=== PATIENT | male | born 1965 | race Hispanic/Latino ===

== ENCOUNTER 2018-12-16 18:30 | Emergency (ER) | payer OTHER ==
[2018-12-16] MEDS ORDERED: Ibuprofen 200 MG TAB ONE ×2 (19:52→19:55)
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
== END 2018-12-16 21:48 | disposition home or self-care (01) ==
LOC: ERS 18:30
DX: S52.572A Other intraarticular fracture of lower end of left radius, initial encounter for closed fracture (principal); S62.002A Unspecified fracture of navicular [scaphoid] bone of left wrist, initial encounter for closed fracture; I10 Essential (primary) hypertension; E78.5 Hyperlipidemia, unspecified; Z79.899 Other long term (current) drug therapy; V86.96XA Unspecified occupant of dirt bike or motor/cross bike injured in nontraffic accident, initial encounter
CPT/HCPCS: 29125

== ENCOUNTER 2018-12-22 12:50 | Outpatient (CLI) | payer OTHER ==
[2018-12-22 13:44] LABS: #Basophils 0.1 thou/uL (0.0-0.2); #Eosinphils 0.1 thou/uL (0.0-0.7); #Lymphocytes 1.7 thou/uL (1.20-3.40); #Monocytes 0.4 thou/uL (0.11-0.59); #Neutrophils 3.1 thou/uL (1.40-6.50); %Basophils 1.1 % (0.0-1.0); %Eosinophils 1.3 % (0.0-10.0); %Lymphocytes 31.9 % (21.0-51.0); %Monocytes 6.7 % (0.0-10.0); Hemoglobin 15.5 g/dL (14.0-18.0); Mean Corpuscular HGB CONC 33.7 g/dL (32.0-36.0); Mean Corpuscular Hemoglobin 30.6 pg (27.0-31.0); Mean Corpuscular Volume 90.8 fL (78.0-98.0); Mean Platelet Volume 8.4 fL (7.4-10.4); Platelet Count 242 thou/uL (130-400); RBC Distribution Width 12.3 % (11.5-14.5); Red Blood Cell (RBC) Count 5.06 mill/uL (4.70-6.10); White Blood Cell (WBC) Count 5.2 thou/uL (4.8-10.8)
--- NOTE | 2018-12-22 17:03 | EKG ---
Test Reason : Blood Pressure : / mmHG Vent. Rate : 069 BPM Atrial Rate : 069 BPM P-R Int : 174 ms QRS Dur : 102 ms QT Int : 384 ms P-R-T Axes : 050 -10 047 degrees QTc Int : 411 ms Normal sinus rhythm Septal infarct , age undetermined Abnormal ECG No previous ECGs available Confirmed by DR. Christopher CLIFFORD (3) on 12/22/2018 5:03:18 PM Referred By: SARAH Confirmed By:DR. Christopher CLIFFORD
== END 2018-12-22 12:51 | disposition home or self-care (01) ==
LOC: LABBT 12:50
PROVIDERS: ATTEND Orthopaedic Surgery Hand Surgery
DX: Z01.818 Encounter for other preprocedural examination (principal); S52.502A Unspecified fracture of the lower end of left radius, initial encounter for closed fracture; S62.002A Unspecified fracture of navicular [scaphoid] bone of left wrist, initial encounter for closed fracture
CPT/HCPCS: 85025; 93005; 93010

== ENCOUNTER 2018-12-26 07:54 | Day surgery (SDC) | payer OTHER ==
[2018-12-22 12:56] VITALS: BMI 30.4
[2018-12-26] MEDS ORDERED: Fentanyl 100 MCG/2 ML VIAL ONE (09:56)
[2018-12-26] MEDS ORDERED: Midazolam HCl 2 mg/2 ml Vial ONE ×2 (09:56→11:17)
[2018-12-26] MEDS ORDERED: HYDROmorphone 0.5 MG/0.5 ML SYRINGE ONE ×2 (11:17→12:14)
[2018-12-26] MEDS ORDERED: Bacitracin Zinc Ointment 30 gm TUBE ONE (11:26)
--- NOTE | 2018-12-26 14:28 | RAD ---
INTRAOPERATIVE IMAGING RIGHT WRIST: 12/26/2018 HISTORY: ORIF FINDINGS: Images demonstrate placement of volar radial screw and plate fixation distally. Images also demonstr ate placement of a screw within the scaphoid bone. IMPRESSION: Open reduction and internal fixation, as above. Transcribed Date/Time: 12/26/2018 2:31 PM
[2018-12-26] MEDS ORDERED: Ketorolac Tromethamine 30 MG/ML VIAL ONE (15:11)
[2018-12-26] MEDS ORDERED: Bupivacaine HCl 0.5%/Epinephrine 1:200,000/PF 30 ml Vial ONE (16:14)
[2018-12-26] MEDS ORDERED: Lidocaine 1% PF 5 ML VIAL ONE (16:46)
[2018-12-26] MEDS ORDERED: PROPOFOL 200 MG/20 ML VIAL ONE (16:46)
[2018-12-26] MEDS ORDERED: Ondansetron PF 4 MG/2 ML Vial ONE (16:46)
[2018-12-26] MEDS ORDERED: Dexamethasone 20 MG/5 ML VIAL ONE (16:46)
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
--- NOTE | 2019-01-02 05:53 | PQF ---
[facility] POST DISCHARGE CLINICAL DOCUMENTATION IMPROVEMENT CLARIFICATION FORM l Todays Date: 01/02/19 l Patients Name VITA PIERCE l l Admit Date 12/26/18 l Disch Date 12/26/18 Thermocouple Tester Name Norberto Azar Email: [email or web address] Cell: [phone] To be completed by Thermocouple Tester: Present Clinical Indicators - Signs / Symptoms Results and Location in Medical Record [ ] Documentation of: [ ] [ ] Documentation of: [ ] [ ] Documentation of: [ ] [ ] Documentation of: [ ] [ ] Risks [ ] [ ] [ ] Treatment [ ] Distal radius and scaphoid fracture Query for fracture laterality: LEFT as per [facility] Intra Op Report, Peripheral Block. RIGHT as per Wrist X-ray. H&P states RIGHT then LEFT. No laterality stated in Operative Report [ ] [ ] To be completed by Physician: PABLO VALERIO The documentation in this patients record requires clarification to ensure coding compliance and accuracy. Check the appropriate box and include in your discharge summary. [ ] [ ] [ ] [ ] Please check this box if this does not apply to this patient [ ] Unable to determine [ ] Other diagnosis: Review the following information and exercise your independent professional judgment in responding to the clarification. Based upon the clinical findings, risk factors, and treatment, please clarify if you are treating one of the above probable or suspected diagnoses. Physician Signature: Date Time MTDD
== END 2018-12-26 17:15 | disposition home or self-care (01) ==
LOC: SDC 07:54
PROVIDERS: ATTEND Orthopaedic Surgery Hand Surgery
PROC: 3E0T3BZ Introduction of Anesthetic Agent into Peripheral Nerves and Plexi, Percutaneous Approach (ICD-10-PCS; principal; 2018-12-26)
PROC: 0PSH04Z Reposition Right Radius with Internal Fixation Device, Open Approach (ICD-10-PCS; principal; 2018-12-26)
PROC: 0PSM04Z Reposition Right Carpal with Internal Fixation Device, Open Approach (ICD-10-PCS; principal; 2018-12-26)
DX: S52.571A Other intraarticular fracture of lower end of right radius, initial encounter for closed fracture (principal); S62.031A Displaced fracture of proximal third of navicular [scaphoid] bone of right wrist, initial encounter for closed fracture; G89.18 Other acute postprocedural pain; I10 Essential (primary) hypertension; E78.00 Pure hypercholesterolemia, unspecified; Z79.899 Other long term (current) drug therapy; V89.9XXA Person injured in unspecified vehicle accident, initial encounter
CPT/HCPCS: 76000; C1713; J0670; J0690; J1100; J1170; J1885; J2001; J2250; J2405; J2704; J3010